=== PATIENT | male | born 1975 | race Caucasian/White ===

== ENCOUNTER 2025-05-02 12:07 | Emergency (ER) | payer OTHER, SELFPAY ==
[2025-05-02 12:17] VITALS: BP 146/92; PULSE 60; TEMP 36.7; O2SAT 100; BMI 26.5
--- NOTE | 2025-05-02 12:28 | CT_ITS ---
[facility] [place] [id number] Patient Name: JAROCHO GIL MRN: [id number] date: 1975 Sex: M Assigned Patient Location: ED.MAIN Current Patient Location: ED.MAIN Accession/Order Number: [id number] Exam Date: 05/02/2025 13:03 Report Date: 05/02/2025 13:27 At the request of: NELSON GLASS Procedure: CT lumbar spine wo con CT lumbar spine wo con 05/02/2025 1:19 PM History:Fall, low back pain. Fall was 2 days ago. TECHNIQUE: Multi detector CT axial slices of the lumbar spine were obtained without IV contrast. Volumetric acquisition sagittal, coronal, and 3-D reconstructions were performed and reviewed on a separate workstation. CT was performed with one or more of the following dose reduction techniques: Automated exposure control, adjustment of the mA and/or kV according to patient size, or use of iterative reconstruction technique. COMPARISON: None FINDINGS: Vertebral body heights appear maintained. Scattered endplate and facet joint degenerative changes with moderate disc space narrowing L1-L2 and L5-S1. Left-sided transverse process fractures of L1 and L2. SI joints also demonstrate degenerative change. No paraspinal mass. Visualized retroperitoneum demonstrates no acute findings. CT/CT lumbar spine wo con IMPRESSION: Left-sided transverse process fractures of L1 and L2. Impression dictated by: George Bateman Jr., D.O. 05/02/2025 1:27 PM Dictation Location: [place] [address] Electronically authenticated by: [id number] Y Date: 05/02/2025 13:27
--- NOTE | 2025-05-02 12:30 | ED_ITS ---
HPI HPI - General Adult General Chief complaint: Fall Stated complaint: FALL BACK PAIN Time Seen by Provider: 05/02/25 12:20 Source: patient Mode of arrival: walk-in Limitations: no limitations History of Present Illness HPI narrative: Patient is a 49-year-old male who presents with complaints of low back pain after he fell down approximately half flight of stairs and landed on his back 2 days ago, Friday night while attempting to go to the bathroom. He states he has had low back issues in the past, denies surgery. He denies any saddle anesthesia, bowel or bladder incontinence/retention, or numbness/weakness of his lower extremities. His pain is okay if he is holding still and has tried ibuprofen and Flexeril at home without relief. The pain is more so on the left side. Related Data Previous Rx's ?Medication ?Instructions ?Recorded cyclobenzaprine 10 mg tablet 10 mg PO BID PRN muscle s pasm #20 05/02/25 tabs naproxen 500 mg tablet,delayed 500 mg PO BID #30 tabs 05/02/25 release Allergies Allergy/AdvReac Type Severity Reaction Status Date / Time Penicillins Allergy Unknown hives Verified 05/02/25 12:39 Opioid HPI Opioid Management Most Recent Opioid Data: Last Pain Scale 10 Today, 12:39 Last MAR Pain Assessment Today, 12:39 Review of Systems ROS Status of ROS 10 or more systems reviewed and unremark able except as noted in history and below Exam Narrative Exam Narrative: General: No distress, age-appropriate Skin: Warm, dry, no pallor. No rash. Head: Normocephalic, atraumatic. Neck: Supple, non-tender. Eye: Pupils are equal, round and EOMI. No scleral icterus. Ears, Nose, Mouth, and Throat: No nasal mucosal hypertrophy. Oral mucosa is moist, no posterior oropharynx erythema, uvula is mid-line Cardiovascular: Regular Rate and Rhythm without murmur, gallop or rub. Respiratory: No accessory muscle use or respiratory distress. Back: No midline thoracic or lumbar vertebral tenderness. Diffusely tender left lumbar area. No crepitus. No signs of trauma. Musculoskeletal: Full ROM of all extremities, no calf or popliteal tenderness. Positive straight leg raise on the left, negative on the right. 4/5 strength left hip flexion that appears to be secondary to pain, otherwise 5/5 strength bilateral lower extremities. Negative clonus bilaterally. Full sensation with light touch, symmetrical, bilateral lower extremities GI: Abdomen is soft, non-distended, non tender to palpation. No masses appreciated. No rebound, guarding, or rigidity noted. Neurological: A&O x4. No cranial nerve dysfunction observed. No truncal ataxia. Moves all extremities. Sensation intact. Psychiatric: Cooperative and interactive. Normal mood and affect. Constitutional Vital Signs, click to edit/add: Last Vital Signs Temp 98.1 F 05/02/25 12:17 Pulse 68 05/02/25 13:35 Resp 16 05/02/25 13:35 BP 164/95 H 05/02/25 13:35 Pulse Ox 98 05/02/25 13:35 O2 Del Method Room Air 05/02/25 13:35 Documenting provider has reviewed patient's vital signs: yes Course Vital Signs Vital signs: Vital Signs Temperature 98.1 F 05/02/25 12:17 Pulse Rate 60 05/02/25 12:17 Respiratory Rate 18 05/02/25 12:17 Blood Pressure 146/92 H 05/02/25 12:17 Pulse Oximetry 100 05/02/25 12:17 Oxygen Delivery Method Room Air 05/02/25 12:17 Temperature 98.1 F 05/02/25 12:17 Pulse Rate 68 05/02/25 13:35 Respiratory Rate 16 05/02/25 13:35 Blood Pressure 164/95 H 05/02/25 13:35 Pulse Oximetry 98 05/02/25 13:35 Oxygen Delivery Method Room Air 05/02/25 13:35 Medical Decision Making MDM Narrative Medical decision making narrative: The patient is a 49-year-old male with acute left-sided low back pain after a fall down half a flight of stairs 2 days ago. He has a history of chronic low back pain but no prior surgeries. He denies numbness, weakness, saddle anesthesia, or bowel/bladder changes. On exam, he is neurologically intact with tenderness over the left lumbar paraspinal muscles. CT lumbar spine without contrast shows left L1 and L2 transverse process fractures. Urinalysis is negative for occult hematuria, and no other acute injuries are identified. I did call and speak with Neurosurgeon, Dr. Martinez with [facility], and he recommends non-operative management, with no brace required, and outpatient follow-up. The patient is appropriate for discharge with activity modification, analgesia, and return precautions. Pain management was addressed in the ED with Toradol 30 mg IM, lidocaine patch, Norflex 60 mg IM, and the patient verbalized understanding of the plan. He was discharged with naproxen 500 mg twice daily, as he verbalized this is easier on his stomach than ibuprofen, and Flexeril 10 mg. He can get lidocaine patches OTC as needed. I did provide him with the nurse practitioners name with neurosurgery to follow-up with. Pain controlled in the ED, no red flag symptoms to suggest cauda equina, patient discharged with pain medication and appropriate follow-up. Differential Diagnosis Differential Diagnosis: Lumbar fracture, disc herniation, kidney contusion/ laceration Lab Data Labs: Lab Results 05/02/25 Range/Units 13:30 Urine Color Lt. yellow (YELLOW) Urine Clarity Clear (CLEAR) Urine pH 6.0 (5.0-9.0) Ur Specific [place] 1.015 (1.005-1.025) Urine Protein 100 A (NEG/TRACE) mg/dL Urine Glucose (UA) Negative (NEGATIVE) mg/dL Urine Ketones Negative (NEGATIVE) mg/dL Urine Occult Blood Negative (NEGATIVE) Urine Nitrite Negative (NEGATIVE) Urine Bilirubin Negative (NEGATIVE) Urine Urobilinogen 0.2 (0.2-1.0) EU/dL Ur Leukocyte Esterase Negative (NEGATIVE) Imaging Data CT lumbar spine without: Attestation: I have reviewed the pertinent imaging results. Radiologist's impression: ITS Impressions Lumbar Spine CT 05/02/25 12:28 IMPRESSION: Left-sided transverse process fractures of L1 and L2. Impression dictated by: George Bateman Jr. DDomitilaODomitila 05/02/2025 1:27 PM Dictation Location[facility] Electronically authenticated by: [id number] Y Date: 05/02/2025 13:27 Discharge Plan Discharge Chief Complaint: Fall Clinical Impression: Lumbar transverse process fracture Patient Disposition: Home, Self-Care Time of Disposition Decision: 14:06 Condition: Good Mode of Transportation: Private Vehicle Prescriptions / Home Meds: New naproxen 500 mg tablet,delayed release (DR/EC) 500 mg PO BID Qty: 30 0RF cyclobenzaprine 10 mg tablet 10 mg PO BID PRN (Reason: muscle spasm) Qty: 20 0RF Print Language: Turkmen Additional Instructions: You were evaluated in the Emergency Department after a fall. Your CT scan showed small fractures of the transverse processes at L1 and L2 on the left side. These are stable fractures, meaning they do not affect the spinal canal or spinal cord and usually heal well with time and pain control. What to Expect * Pain is normal, especially with movement, twisting, or bending. * These fractures typically take 4?6 weeks to heal. * Bruising or muscle spasm in the low back/side can occur. * Improvement should gradually occur each week. Activity Instructions * Avoid heavy lifting, bending, twisting, or strenuous activity for at least 4?6 weeks. * Walk as tolerated; light activity is safe and promotes healing. * Avoid high-impact activities (running, sports) until cleared. * Use good body mechanics when moving or changing positions. * Rest as needed but avoid prolonged bed rest. Pain Management Use a combination of the following unless otherwise instructed: * NSAIDs such as ibuprofen (Motrin/Advil) as directed on package or by your provider. * Acetaminophen (Tylenol) as needed, do not exceed 3,000 mg per day. * Muscle relaxer (such as Flexeril or methocarbamol). * Ice or heat * Ice the first 48?72 hours for swelling or acute pain (20 minutes at a time). * Heat after 72 hours may help with muscle spasms. * If prescribed, take opioid pain medication only as needed and do not drive, drink alcohol, or operate machinery while using it. Home Care * You may use a lidocaine patch if recommended. * Keep good posture, use supportive seating. * Sleep in a comfortable position?many patients prefer on their back with knees elevated or on their side with a pillow between the legs. Follow-Up * Schedule an appointment with: * Your primary care provider within 1 week, AND * Orthopedics or clinical documentation specialist within 1?2 weeks for follow-up and continued management. * Physical therapy may be recommended once pain improves. Return to the Emergency Department Immediately If You Develop: * New numbness, tingling, or weakness in your legs * Loss of bowel or bladder control, difficulty urinating, or incontinence * Increasing severe pain not controlled with medications * Fever, chills, or concern for infection * Worsening difficulty walking or standing * Any new symptoms that concern you Referrals: Physician,Non-Staff, [Primary Care Provider] - 1 week Tram Maxwell APRN [Nurse Practitioner, Neurosurgery] - 1-2 weeks Discharge Date/Time: 05/02/25 14:29
[2025-05-02] MEDS: ORPHENADRINE 60 MG/2 ML VIAL IM (12:39)
[2025-05-02] MEDS: KETOROLAC TROMETHAMINE 30 MG/ML VIAL IM (12:39)
[2025-05-02] MEDS: LIDOCAINE 5% PATCH 1 PATCH TOPICAL (12:40)
--- OUTSIDE RECORDS SUMMARY | 2025-05-02 12:50 | XMS_ITS | Clinical Summary ---
Author Organization [employer] [facility] tem Address [id number] 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 Primary Care Provide r Encounters DateTypeDepartmentCare JfghJcrplpzfwmo40/11/2025Travelfrom Last 3 Months Social History Tobacco UseTypesPacks/DayYears UsedDateSmoking Tobacco: Never AssessedChildcare AnswerDate YnovjkwvEczqoegqkFhikirw96/12/2019EmploymentAnswerDate Recorded MkicjlfkjtXgqnjxl16/12/2019Sex and Gender InformationValueDate RecordedSex Assigned at BirthNot on fileLegal KlkTldp6201/05/2015 11:26 AM EDTGender Identity Not on fileSexual OrientationNot on file Plan of Treatment Health MaintenanceDue DateLast DoneCommentsDepression Jmzuhpjds01/19/1988Tobacco Xnhrmedcc07/19/1988Adult BMI Topeocbxn70/19/1994Influenza Rgjishc6001/31/2025 DTaP,Tdap and Td Vaccines (2 - Td or Tdap) Medical Devices Not on file Procedures Procedure NamePriorityDate/TimeAssociated DiagnosisCommentsPROSTATIC SPECIFIC ANTIGEN NHXVTXDumklyk94/11/2025 8:23 AM EDT Encounter for screening for lipoid disorders Encounter for screening for diabetes mellitus Encounter for screening for malignant neoplasm of prostate Encounter for screening for other suspected endocrine disorder THYROID PROFILE INCLUDES TSH WW0Jolisdy72/11/2025 8:23 AM EDT Encounter for screening for lipoid disorders Encounter for screening for diabetes mellitus Encounter for screening for malignant neoplasm of prostate Encounter for screening for other suspected endocrine disorder COMPREHENSIVE METABOLIC BPSXZQkvdbvn12/11/2025 8:23 AM EDT Encounter for screening for lipoid disorders Encounter for screening for diabetes mellitus Encounter for screening for malignant neoplasm of prostate Encounter for screening for other suspected endocrine disorder LIPID FBCWJHYHytxofn80/11/2025 8:23 AM EDT Encounter for screening for lipoid disorders Encounter for screening for diabetes mellitus Encounter for screening for malignant neoplasm of prostate Encounter for screening for other suspected endocrine disorder from Last 3 Months Results * Thyroid profile includes TSH FT4 (02/10/2025 8:23 AM EDT)ComponentValueRef RangeTest MethodAnalysis TimePerformed AtPathologist SignatureFREE T40.790.61 - 1.60 ng/dL02/10/2025 3:13 PM [facility] LABORATORYTSH2.00 0.49 - 4.67 uIU/mL02/10/2025 3:13 PM [facility] Specimen (Source)Anatomical Location / LateralityCollection Method / Volume Collection TimeReceived TimeBloodVenous blood / UnknownVenipuncture / Unknown 02/10/2025 8:23 AM EDT02/10/2025 8:23 AM EDT Narrative Authorizing ProviderResult TypeResult StatusAbigaalfred Hooker APRN-[facility] BLOOD ORDERABLESFinal ResultPerforming OrganizationAddressCity/State/ZIP CodePhone Number [facility] [address] [place] [address], * Prostatic specific antigen screen (02/10/2025 8:23 AM EDT)ComponentValueRef RangeTest MethodAnalysis TimePerformed AtPathologist SignaturePROSTATIC SPEC ANT0.590.00 - 4.00 ng/mL02/10/2025 10:46 PM [facility] LABORATORYComment: The method used for this test is Jose Bancroft DXI chemiluminescent immunoassay. Values obtained by different assay methods cannot be used interchangeably. Specimen (Source)Anatomical Location / LateralityCollection Method / Volume Collection TimeReceived TimeBloodVenous blood / UnknownVenipuncture / Unknown 02/10/2025 8:23 AM EDT02/10/2025 8:23 AM EDT Narrative Authorizing ProviderResult TypeResult StatusAbitania Hooker SHEET [employer]AL FORMER-[facility] BLOOD ORDERABLESFinal ResultPerforming OrganizationAddressCity/State/ZIP CodePhone Number [facility] [address] [place] [address], * (ABNORMAL) Lipid profile (02/10/2025 8:23 AM EDT)ComponentValueRef RangeTest MethodAnalysis TimePerformed AtPathologist VqgsbqnzbRYSLTWZTUWT376(H)150 - 200 mg/dL02/10/2025 3:47 PM [facility] DIUFDOMIABXERCRIRCMCDK955 (H)27 - 150 mg/dL02/10/2025 3:47 PM [facility] LABORATORYHDL VKPHOYFNLSL39>39 mg/dL02/10/2025 3:47 PM [facility]ORATORYComment: HDL <40 mg/dL - High Risk HDL > or = 40mg/dL- Desirable HDL >60 mg/dL - Negative Risk LDL (CALC)111<130 mg/dL02/10/2025 3:47 PM [facility] Comment: LDL <100 mg/dL - Desirable LDL >160 mg/dL - High Risk CHOLESTEROL:HDL4.61.0 - 5.009 3:47 PM [facility] LABORATORYVERY LOW IXAHFHPGWFV40(H)0 - 30 mg/dL02/10/2025 3:47 PM [facility] LABORATORYSpecimen (Source)Anatomical Location / Laterality Collection Method / VolumeCollection TimeReceived TimeBloodVenous blood / UnknownVenipuncture / Smrknmp5402/10/2025 8:23 AM EDT02/10/2025 8:23 AM EDT Narrative Authorizing ProviderResult TypeResult StatusAbitania Hooker SHEET [employer]AL FORMER-[facility] BLOOD ORDERABLESFinal ResultPerforming OrganizationAddressCity/State/ZIP CodePhone Number [facility] [address] [place] [address], * Comprehensive metabolic panel (02/10/2025 8:23 AM EDT)ComponentValueRef Range Test MethodAnalysis TimePerformed AtPathologist BurejdeiaDAFMJJ365191 - 146 mmol/L02/10/2025 3:47 PM [facility] LABORATORYPOTASSIUM4.73.5 - 5.0 mmol/L02/10/2025 3:47 PM [facility] LABORATORYCHLORIDE 12601 - 109 mmol/L02/10/2025 3:47 PM [facility] CARBON ULRSYDA7360 - 32 mmol/L02/10/2025 3:47 PM [facility] LABORATORYANION GAP95 - 15 mmol/L02/10/2025 3:47 PM [facility] LABORATORYBLOOD UREA LSDIESBW625 - 23 mg/dL02/10/2025 3:47 PM [facility] LABORATORYCREATININE1.210.60 - 1.30 mg/dL02/10/2025 3:47 PM [facility] LABORATORYComment:METHOD TRACEABLE TO IDND MRVXEPEGGUSLMIH7563 - 99 mg/dL02/10/2025 3:47 PM [facility] LABORATORYCALCIUM8.88.5 - 10.5 mg/dL02/10/2025 3:47 PM [facility] LABORATORYTOTAL PROTEIN6.66.0 - 8.0 g/dL02/10/2025 3:47 PM [facility] LABORATORYALBUMIN4.43.2 - 5.3 g/dL02/10/2025 3:[address] [facility]ORYALKALINE AWVAYWVHQAH7046 - 130 U/L 02/10/2025 3:47 PM [facility] OOBOMOMUSLCKE16<=41 U/L 02/10/2025 3:47 PM [facility] TQLUWCTNJSMEY69<=40 U/L 02/10/2025 3:47 PM [facility] LABORATORYBILIRUBIN,TOTAL0.40.3 - 1.2 mg/dL02/10/2025 3:47 PM [facility] LABORATORYEGFR Non- Race Bvxbtgasn71>=60 ml/min/1.73sq.m002/10/2025 3:47 PM [facility] LABORATORYComment: Reported eGFR is based on the CKD-EPI 2020 equation that does not use a race coefficient. Specimen (Source)Anatomical Location / LateralityCollection Method / Volume Collection TimeReceived TimeBloodVenous blood / UnknownVenipuncture / Unknown 02/10/2025 8:23 AM EDT02/10/2025 8:23 AM EDT Narrative Authorizing ProviderResult TypeResult StatusAbitania Hooker APRN-[facility] BLOOD ORDERABLESFinal ResultPerforming OrganizationAddressCity/State/ZIP CodePhone Number [facility] [address] [place] [address], from Last 3 Months Insurance Care Teams Team MemberRelationshipSpecialtyStart DateEnd Date Lisa Hooker APRN-[facility] [address] [place] [address] PCP - GeneralFamily Medicine02/10/25
[2025-05-02 13:35] VITALS: BP 164/95; PULSE 68; O2SAT 98
[2025-05-02 13:38] LABS: Glucose Urine UA NEGATIVE (NEGATIVE)
== END 2025-05-02 14:29 | disposition home or self-care (01) ==
PROVIDERS: Physician Assistant; Emergency Provider Emergency Medicine
DX: S32.019A Unspecified fracture of first lumbar vertebra, initial encounter for closed fracture (principal); S32.029A Unspecified fracture of second lumbar vertebra, initial encounter for closed fracture; W10.8XXA Fall (on) (from) other stairs and steps, initial encounter
CPT/HCPCS: 72131; 76376; 81003; 96372; 99284; J1885; J2360